=== PATIENT | male | born 1985 | race Caucasian/White ===

== ENCOUNTER → 2021-02-12 | Outpatient (CLI) | payer OTHER ==
[~2021-02-12] MED LIST: DOXYCYCLINE HY100 MG PO; IBUPROFEN800 MG PO; LEVAQUIN750 MG PO; LEVOTHYROXINE137 MCG PO; NEURONTIN 300300 MG PO
== END ==
LOC: KOH-I 10:19
DX: R22.32 Localized swelling, mass and lump, left upper limb (principal); M79.642 Pain in left hand
CPT/HCPCS: 73130

== ENCOUNTER → 2021-04-10 | Outpatient (CLI) | payer OTHER | LOC: KOH-I 04-03 13:45 | DX: M79.642 Pain in left hand (principal); M25.442 Effusion, left hand; R94.130 Abnormal response to nerve stimulation, unspecified; G56.92 Unspecified mononeuropathy of left upper limb; M65.842 Other synovitis and tenosynovitis, left hand | CPT/HCPCS: 73221 ==